=== PATIENT | male | born 1985 | race Two or more races ===

== ENCOUNTER 2016-11-14 05:43 | Emergency (ER) | payer BC ==
[~2016-11-14] VITALS: Ht 172.7 cm; Wt 76.7 kg
[2016-11-14 05:50] VITALS: BP 143/84
[2016-11-14] MEDS ORDERED: NKM (05:50)
--- NOTE | 2016-11-14 05:58 | Emergency Room Report ---
History of Present Illness General Chief Complaint: General Complaint Source: Patient Present Illness HPI Is a 31-year-old male with no significant past medical history. He presents with chief complaint of STD exposure. He had unprotected sex this weekend. He received a tetanus message that his partner was exposed to gonorrhea and Chlamydia. Patient has no symptom. No discharge. No dysuria. Here to get treatment for STDs. Allergies: Coded Allergies: ORANGE JUICE (Verified Allergy, Unknown, 11/14/16) Patient History Past Medical History: see triage record, old chart reviewed Past Surgical History: none Pertinent Family History: none Social History: Denies: smoking Immunizations: other Reviewed Nursing Documentation: PMH: Agreed, PSxH: Agreed Nursing Documentation-PMH Past Medical History: No Stated History Review of Systems Eye: Denies: eye pain, blurred vision ENT: Denies: ear pain, nose congestion, throat swelling Respiratory: Denies: cough, shortness of breath Cardiovascular: Denies: chest pain, palpitations Gastrointestinal: Denies: abdominal pain, diarrhea, nausea, vomiting Musculoskeletal: Denies: back pain, joint pain Skin: Denies: rash Neurological: Denies: headache, numbness Endocrine: Denies: increased thirst, increased urine Hematologic/Lymphatic: Denies: easy bruising All Other Systems: negative except mentioned in HPI Physical Exam Vital Signs Date Time Temp Pulse Resp B/P (MAP) Pulse Ox O2 Delivery O2 Flow Rate FiO2 11/14/16 05:44 97.9 93 16 143/84 99 Room Air vitals unremarkable Sp02 EP Interpretation: reviewed, normal General Appearance: well appearing, no apparent distress, alert Head: normocephalic, atraumatic Eyes: bilateral eye PERRL, bilateral eye EOMI ENT: hearing grossly normal, normal pharynx Neck: full range of motion, supple, no meningismus Respiratory: chest non-tender, lungs clear, normal breath sounds Cardiovascular #1: regular rate, rhythm, no murmur Gastrointestinal: normal bowel sounds, non tender, no mass, no organomegaly, no bruit, non-distended Musculoskeletal: back normal, gait/station normal, normal range of motion Psychiatric: mood/affect normal Skin: warm/dry Medical Decision Making Diagnostic Impression: Primary Impression: STD exposure ER Course Patient with STD exposure. No symptom. We'll go and treated. Recommend outpatient testing for HIV, syphilis and other STDs. Last Vital Signs Date Time Temp Pulse Resp B/P (MAP) Pulse Ox O2 Delivery O2 Flow Rate FiO2 11/14/16 05:44 97.9 93 16 143/84 99 Room Air Status: improved Disposition: HOME, SELF-CARE Condition: Stable Additional Instructions: Followup with your Dr. in 7 days. Recommend outpatient testing for HIV, hepatitis, syphilis, and other STDs. Return if worse. SNEHAL PORTILLO M.D. Nov 14, 2016 05:58
[2016-11-14] MEDS ORDERED: Azithromycin 250mg tab ORAL ONE (06:00)
[2016-11-14] MEDS ORDERED: Lidocaine 1% MPF 10mg/ml 5ml ONE (06:04)
[2016-11-14] MEDS ORDERED: Lidocaine 1% MPF 10mg/ml 5ml IM ONE (06:15)
[2016-11-14 06:20] VITALS: BP 139/75
== END 2016-11-14 06:20 | disposition home or self-care (01) ==
LOC: EMR 05:59
DX: Z20.2 Contact with and (suspected) exposure to infections with a predominantly sexual mode of transmission (principal)
CPT/HCPCS: 96372; 99284; J0696

== ENCOUNTER 2017-08-01 02:29 | Emergency (ER) | payer BC ==
[~2017-08-01] VITALS: Ht 172.7 cm; Wt 72.1 kg
[~2017-08-01 02:29] MED LIST: NKM
[2017-08-01 02:40] VITALS: BP 122/73
--- NOTE | 2017-08-01 03:00 | Emergency Room Report ---
History of Present Illness General Chief Complaint: Male Urogenital Problems Source: Patient Present Illness HPI 32-year-old male with no medical problems, no surgical history other than remote hernia repair Presents with bilateral testicle pain for the past month, he reports initially it was only with movement and palpation, now he reports his been constant for the last few days. He reports he is sexually active, but denies any dysuria, abnormal discharge, rashes, ulcerations, swelling, masses, any other abnormalities. Allergies: Coded Allergies: ORANGE JUICE (Verified Allergy, Unknown, Rash, 08/01/17) Uncoded Allergies: PEANUT BUTTER (Allergy, Unknown, Hives, 08/01/17) Patient History Past Medical History: see triage record Reviewed Nursing Documentation: PMH: Agreed; PSxH: Agreed Nursing Documentation-PMH Past Medical History: No Stated History Review of Systems All Other Systems: negative except mentioned in HPI Physical Exam Vital Signs Date Time Temp Pulse Resp B/P (MAP) Pulse Ox O2 Delivery O2 Flow Rate FiO2 08/01/17 02:38 98.3 69 16 122/73 96 Room Air 98.2 Sp02 EP Interpretation: reviewed, normal General Appearance: no apparent distress, alert, non-toxic Head: normocephalic Eyes: bilateral eye normal inspection, bilateral eye PERRL, bilateral eye EOMI ENT: normal ENT inspection, hearing grossly normal, normal pharynx, no angioedema, normal voice, moist mucus membranes Neck: normal inspection, full range of motion, supple, supple/symm/no masses Respiratory: chest non-tender, lungs clear, normal breath sounds, chest symmetrical, palpation of chest normal Cardiovascular #1: normal peripheral pulses, regular rate, rhythm Cardiovascular #2: 2+ radial (R), 2+ radial (L) Gastrointestinal: normal inspection, non tender, soft, no mass, no guarding, no rebound Rectal: deferred Genitourinary: normal inspection, no CVA tenderness, no vertebral tenderness, penis normal, scrotum normal Musculoskeletal: back normal, gait/station normal, normal range of motion, non- tender, no calf tenderness Neurologic: alert, responsive, billing and insurance coordinator III-XII nml as tested, motor strength/tone normal, sensory intact, speech normal Psychiatric: judgement/insight normal, memory normal, mood/affect normal, no suicidal/homicidal ideation Skin: normal color, no rash, warm/dry, normal turgor Lymphatic: no adenopathy - No inguinal lymphadenopathy Medical Decision Making Diagnostic Impression: Primary Impression: Testicle pain ER Course Patient with a normal examination, urine sent for chlamydia and gonorrhea as well as urinalysis, ultrasound ordered, patient given ibuprofen Do not suspect acute emergency, however unable to rule out torsion or infection based only on history and physical, so further workup obtained US with possibly epididymitis so will treat and have pt f/u with urology normal UA CT/MRI/US Diagnostic Results CT/MRI/US Diagnostic Results : Imaging Test Ordered: Scrotal ultrasound Impression possible small hydrocele and epididymytis on L side only, normal arterial flow bilaterally Last Vital Signs Date Time Temp Pulse Resp B/P (MAP) Pulse Ox O2 Delivery O2 Flow Rate FiO2 08/01/17 02:40 98.2 69 16 122/73 96 Room Air 98.2 Disposition: HOME, SELF-CARE Condition: Stable Referrals: NON PHYSICIAN (PCP) SEFERINO SHANKS M.D Aug 01, 2017 03:00
[2017-08-01 03:12] LABS: APPEARANCE,URINE CLEAR; BILIRUBIN, URINE NEGATIVE (NEGATIVE); COLOR,URINE PALE YELLOW; GLUCOSE, URINE (UA) NEGATIVE (NEGATIVE); KETONES,URINE NEGATIVE (NEGATIVE); LEUKOCYTE ESTERASE ,URINE NEGATIVE (NEGATIVE); NITRITE,URINE NEGATIVE (NEGATIVE); PH,URINE 6 (4.5-8.0); PROTEIN,URINE NEGATIVE (NEGATIVE); UROBILINOGEN,URINE NORMAL MG/DL (0.0-1.0)
[2017-08-01] MEDS ORDERED: IBUPROFEN600 MG ORAL (04:13)
[2017-08-01] MEDS ORDERED: DOXYCYCLINE MO100 MG ORAL (04:13)
[2017-08-01] MEDS ORDERED: Lidocaine 1% MPF 10mg/ml 5ml INJ ONE (04:15)
[2017-08-01 04:32] VITALS: BP_SYST 122; BP_SYST 127; BP_DIAS 73; BP_DIAS 77
--- NOTE | 2017-08-01 09:51 | Diagnostic Imaging Report ---
Indications: Scrotal pain Technique: Grayscale and duplex images of the scrotum Comparison: none Findings:The right testicle measures 2.8cm in length. It demonstrates normal echogenicity. Normal Doppler flow. Normal epididymis. The left testicle measures 3.7 cm in length. It demonstrates normal echogenicity and normal Doppler flow. Multiple cysts are seen in the epididymal head. The epididymal head appears slightly enlarged but does not appear to be hypervascular. Large fluid collection in the epididymal head also probably represents a large cyst in the epididymis although could represent a focal hydrocele. There is a small varicocele. Impression: Enlarged left epididymal head but no increased vascularity. This is an equivocal finding but could indicate early epididymitis Multiple epididymal head cyst versus spermatocele Larger fluid collection in the epididymal head, could represent a focal hydrocele or a large epididymal head cyst Small left varicocele No evidence of testicular torsion
== END 2017-08-01 04:35 | disposition home or self-care (01) ==
LOC: EMR 02:54
DX: N50.812 Left testicular pain (principal); N50.811 Right testicular pain; I86.1 Scrotal varices; R93.8 Abnormal findings on diagnostic imaging of other specified body structures
CPT/HCPCS: 76870; 81003; 87491; 87590; 96372; 99284; J0696